=== PATIENT | male | born 1955 | race Caucasian/White ===

== ENCOUNTER 2023-08-16 01:39 | Emergency (ER) | payer MEDICARE ==
--- NOTE | 2023-08-16 01:47 | ERPHSYRPT ---
- History of Present Illness Time Seen by Provider: 08/16/23 01:47 Source: patient, family Exam Limitations: no limitations Physician History: This is a right-handed 67-year-old white male patient who was cutting a ham bone at noon today when he accidentally cut the dorsal aspect of his left thumb and the flap like fashion. Patient's tetanus status is not up-to-date. Patient put pressure on the site as it is a small laceration. However, it continues to bleed. Prior to his visit to our emergency department, he sat in the emergency room at [facility] in [facility] for over an hour. He did not think he be seen in a expedited fashion therefore he came to our facility for evaluation and management. Patient has not on any anticoagulation therapy but he does take a daily baby aspirin. He has no bleeding or clotting disorders. Timing/Duration: yesterday Quality: painful Severity: mild Location: hands (Left hand/thumb dorsal aspect) Possible Causes: no cause identified Associated Symptoms: denies symptoms Allergies/Adverse Reactions: No Known Drug Allergies Allergy (Verified 06/15/23 12:27) Home Medications: Atorvastatin Calcium [Lipitor 20MG Tablet] 1 tab PO HS 06/15/23 [History] Mecobalamin [B12 Active] 2 tab PO HS 08/16/23 [History] Hx Tetanus, Diphtheria Vaccination/Date Given: Yes Hx Influenza Vaccination/Date Given: No Hx Pneumococcal Vaccination/Date Given: No Travel Risk - International Travel Have you traveled outside of the country in past 3 weeks: No - Coronavirus Screening Are you exhibiting any of the following symptoms?: No Close contact with a COVID-19 positive Pt in past 14-21 Days: No - Vaccine Status Have you recieved a Covid-19 vaccination: Yes Vault Installer: Unknown - Vaccination Dates Dates if Unknown: ? - Review of Systems Constitutional: No Symptoms Eyes: No Symptoms Ears, Nose, & Throat: No Symptoms Respiratory: No Symptoms Cardiac: No Symptoms Abdominal/Gastrointestinal: No Symptoms Genitourinary Symptoms: No Symptoms Musculoskeletal: No Symptoms Skin: Other (Laceration dorsal aspect left thumb) Neurological: No Symptoms Psychological: No Symptoms Endocrine: No Symptoms Hematologic/Lymphatic: No Symptoms Immunological/Allergic: No Symptoms All Other Systems: Reviewed and Negative - Past Medical History Pertinent Past Medical History: Yes Cardiac History: High Cholesterol Musculoskeletal History: Fractures Other Medical History: LEFT SHOULDER TEAR, RIB FRACTURES, patient states that he was told at [facility] once that he has an irregular heart beat and that Dr. Soria currently has that information and EKG strip. - Past Surgical History Past Surgical History: No - Social History Smoking Status: Never smoker Exposure to second hand smoke: No Drug Use: none Patient Lives Alone: No - Nursing Vital Signs Nursing Vital Signs: Initial Vital Signs Pulse Rate 63 08/16/23 01:48 Respiratory Rate 18 08/16/23 01:48 Blood Pressure 132/78 08/16/23 01:48 O2 Sat by Pulse Oximetry 97 08/16/23 01:48 Pain Scale Pain Intensity 0 - Physical Exam General Appearance: no apparent distress, alert Eye Exam: PERRL/EOMI, eyes nml inspection Ears, Nose, Throat Exam: normal ENT inspection, moist mucous membranes Neck Exam: normal inspection, non-tender, supple, full range of motion Respiratory Exam: airway intact, No chest tenderness, No respiratory distress Gastrointestinal/Abdomen Exam: No tenderness Rectal Exam: not done Extremity Exam: normal range of motion, pelvis stable, lacerations (Just less than 1 cm superficial flap laceration dorsal aspect left thumb. Neurovascularly intact. Tendons intact. No active bleeding at this time. No evidence of foreign body.) Neurologic Exam: alert, oriented x 3, cooperative, cloth brushing and sueding supervisor II-XII nml as tested, normal mood/affect, nml cerebellar function, nml station & gait, sensation nml Skin Exam: laceration Lymphatic Exam: No adenopathy (See above) SpO2 Interpretation: normal O2 Delivery: Room Air Procedures - Laceration/Wound Repair Left Dorsal Finger Time of Procedure: 02:20 Wound Location: Left, hand (Thumb) Wound Length (cm): 1 Wound's Depth, Shape: superficial, linear, flap Wound Explored: clean (Wound explored to the base in a bloodless field and no foreign body noted) Irrigated: Yes Hibiclens Prep: Yes Wound Repaired With: Steri-strips, Dermabond (Benzoin used to prep the site) Layer Closure?: No - Course Nursing assessment & vital signs reviewed: Yes Ordered Tests: Medication Summary Discontinued Medications Generic Name Dose Route Start Last Admin Trade Name Freq PRN Reason Stop Dose Admin Diphtheria/Tetanus/Acell Pertussis 0.5 ml 08/16/23 02:04 08/16/23 02:31 Tdap --Diph,Pertuss(Acell),Tet Vac/Pf 0.5 Ml Vial IM 08/16/23 02:05 0.5 ml .ONCE ONE Administration Diphtheria/Tetanus/Acell Pertussis Confirm 08/16/23 02:30 Tdap --Diph,Pertuss(Acell),Tet Vac/Pf 0.5 Ml Vial Administered 08/16/23 02:31 Dose 0.5 ml IM .STK-MED ONE - Progress Progress: improved Progress Note: 08/16/23 02:39 This patient's medical issue is 1 of low complexity. The level of complexity in the workup performed based on review of the patient's past medical history, review the patient's medication list, review the patient's drug allergy list, history present illness and physical findings on examination. This patient's workup does not include laboratory or radiographic studies. Counseled pt/family regarding: diagnosis Medical Desision Making - Independent Historian Additional History obtained from: Spouse - Diagnostic Testing Diagnostic test were ordered, analyzed, and reviewed by me: No - Risk of complications Minimal Risk: Minimal risk of morbidity - Departure Departure Disposition: Home Clinical Impression: Thumb laceration Condition: Stable Critical Care Time: No Referrals: LOUIS SORIA MD [Primary Care Provider] - Follow up/PCP as directed Additional Instructions: Keep the current top bandage in place until the morning of 08/17/2023. At that time remove the top dressing and leave the Steri-Strips in place until they fall off on their own in 5 to 7 days. May begin allowing the soap and water to hit the site. Dry with a wheelchair van operator first responder blot dry. As the Steri-Strips curl up, may trim them as discussed.
[2023-08-16 01:58] VITALS: RESP 16; TEMP 97.5
[2023-08-16] MEDS ORDERED: Adacel Vial IM ONE ×2 (02:04→02:30)
[2023-08-16 02:43] VITALS: BP 136/69; PULSE 66; O2SAT 97
== END 2023-08-16 02:55 | disposition home or self-care (01) ==
LOC: ED 01:39
DX: S61.012A Laceration without foreign body of left thumb without damage to nail, initial encounter (principal); W26.0XXA Contact with knife, initial encounter; Y93.G9 Activity, other involving cooking and grilling; E78.5 Hyperlipidemia, unspecified; Z79.899 Other long term (current) drug therapy; Z23 Encounter for immunization
CPT/HCPCS: 12001; 90471; 90715; 99282

== ENCOUNTER 2024-06-27 22:57 | Emergency (ER) | payer MEDICARE ==
[2024-06-27 23:02] VITALS: TEMP 98.2
--- NOTE | 2024-06-27 23:03 | ERPHSYRPT ---
- History of Present Illness Time Seen by Provider: 06/27/24 23:02 Historian: patient Exam Limitations: no limitations Physician History: The patient, with a history of hypercholesterolemia managed with atorvastatin, presented with central chest pain that started in the morning. They reported a similar episode a few years ago, which resolved without a definitive diagnosis. The chest pain was initially radiating up to the neck, but currently localized to the chest. The discomfort seemed to intensify after a short walk. They denied any associated symptoms such as dyspnea, edema, nausea, vomiting, or palpitations. In the past, the patient had a stress test following a rib fracture, which returned normal results. They also had a history of significant acid reflux, diagnosed with a PH1 acid level on an upper GI study. This was managed with omeprazole, which they have not taken for several years as the symptoms resolved. The patient denied any current symptoms of acid reflux. They also denied any current respiratory symptoms or abdominal pain. They have never s moked. Timing/Duration: today Activities at Onset: rest Quality: pressure Location: substernal Chest Pain Radiation: no radiation Severity of Pain-Max: mild Severity of Pain-Current: mild Modifying Factors: Improves With: nothing. Worsens With: exertion, movement Associated Symptoms: cough, No nausea, No vomiting, No palpitations, No heartburn, No abdominal pain, No shortness of breath, No hurts to breathe, No diaphoresis, No chills, No fever, No fatigue, No weakness, No syncope, No headache, No dizziness, No edema, No back pain Prior Chest Pain/Cardiac Workup: stress test Nitro Today/Relief: 0.4 mg x 1, provided by ED Aspirin Treatment Today: 81 mg x 4, provided at home Allergies/Adverse Reactions: No Known Drug Allergies Allergy (Verified 06/27/24 23:23) Home Medications: Atorvastatin Calcium [Lipitor 20MG Tablet] 1 tab PO HS 06/15/23 [History] Mecobalamin [B12 Active] 2 tab PO DAILY 08/16/23 [History] Hx Tetanus, Diphtheria Vaccination/Date Given: Yes Hx Influenza Vaccination/Date Given: No Hx Pneumococcal Vaccination/Date Given: No - Review of Systems All Other Systems: Reviewed and Negative - Past Medical History Pertinent Past Medical History: Yes Neurological History: No Pertinent History ENT History: No Pertinent History Cardiac History: High Cholesterol Respiratory History: No Pertinent History Endocrine Medical History: No Pertinent History Musculoskeletal History: Fractures GI Medical History: No Pertinent History History: No Pertinent History Psycho-Social History: No Pertinent History Male Reproductive Disorders: No Pertinent History Other Medical History: LEFT SHOULDER TEAR, RIB FRACTURES, patient states that he was told at [facility] once that he has an irregular heart beat and that Dr. Soria currently has that information and EKG strip. - Past Surgical History Past Surgical History: No Neuro Surgical History: No Pertinent History Cardiac: No Pertinent History Respiratory: No Pertinent History Gastrointestinal: No Pertinent History Genitourinary: No Pertinent History Musculoskeletal: No Pertinent History Male Surgical History: No Pertinent History - Social History Smoking Status: Never smoker Exposure to second hand smoke: No Drug Use: none Patient Lives Alone: No - Nursing Vital Signs Nursing Vital Signs: Initial Vital Signs Pulse Rate 63 06/27/24 23:00 Respiratory Rate 16 06/27/24 23:00 Blood Pressure 162/80 06/27/24 23:00 O2 Sat by Pulse Oximetry 95 06/27/24 23:00 Pain Scale Pain Intensity 0 - Physical Exam General Appearance: no apparent distress, thin Eye Exam: PERRL/EOMI, eyes nml inspection Ears, Nose, Throat Exam: normal ENT inspection Neck Exam: normal inspection, non-tender, supple, full range of motion Respiratory Exam: normal breath sounds, lungs clear, airway intact, No chest tenderness, No respiratory distress Cardiovascular Exam: regular rate/rhythm, normal heart sounds, capillary refill <2 sec, No edema Gastrointestinal/Abdomen Exam: soft, No tenderness, No distention, No mass, No guarding, No rebound Extremity Exam: normal inspection, No swelling, No tenderness Neurologic Exam: alert, oriented x 3, cooperative Skin Exam: normal color, warm, dry SpO2 Interpretation: normal O2 Delivery: Room Air - Course Nursing assessment & vital signs reviewed: Yes EKG Interpreted by Me: RATE (51), Sinus Sudhakar, NORMAL ST-T, Other (ME 220) - Radiology Exams Chest X-ray Interpretation: Interpreted by me, Negative Ordered Tests: Active Orders 24 hr Category Date Time Status Property Insurance Claims Examiner STAT Care 06/27/24 23:03 Active EKG-ER Only STAT Care 06/27/24 23:03 Active IV Insertion STAT Care 06/27/24 23:03 Active CHEST 1 VIEW (PORTABLE) Stat Exams 06/27/24 23:03 Taken CBC W DIFF Stat Lab 06/27/24 23:20 Completed CMP Stat Lab 06/27/24 23:20 Completed LIPID PROFILE Stat Lab 06/27/24 23:30 Completed NT PRO BNPII Stat Lab 06/27/24 23:20 Completed TROPONIN Q4H Lab 06/27/24 23:20 Completed TROPONIN Q4H Lab 06/28/24 03:15 Ordered TROPONIN Q4H Lab 06/28/24 07:15 Ordered TSH [TSH, 3RD Generation] Stat Lab 06/27/24 23:20 Completed Medication Summary Discontinued Medications Generic Name Dose Route Start Last Admin Trade Name Kevq PRN Reason Stop Dose Admin Aspirin 324 mg 06/27/24 23:03 06/27/24 23:16 Aspirin 81 Mg Tab.Chew PO 06/27/24 23:04 Not Given STAT Aspirin Confirm 06/27/24 23:08 Aspirin 81 Mg Tab.Chew Administered 06/27/24 23:09 Dose 324 mg .ROUTE .STK-MED ONE Sodium Chloride 1,000 mls @ 999 mls/hr 06/27/24 23:03 06/27/24 23:10 Sodium Chloride 0.9% 1000 Ml IV 06/28/24 00:03 999 mls/hr .Q1H1M STA Administration Sodium Chloride Confirm 06/27/24 23:09 Sodium Chloride 0.9% 1000 Ml Administered 06/27/24 23:10 Dose 1,000 mls @ ud .ROUTE .STK-MED ONE Nitroglycerin 0.4 mg 06/27/24 23:03 06/27/24 23:10 Nitroglycerin 0.4 Mg (Ed) 0.4 Mg Tab.Subl SL 06/27/24 23:04 0.4 mg STAT ONE Administration Nitroglycerin Confirm 06/27/24 23:09 Nitroglycerin 0.4 Mg (Ed) 0.4 Mg Tab.Subl Administered 06/27/24 23:10 Dose 0.4 mg SL .STK-MED ONE Lab/Rad Data: Laboratory Result Diagrams 06/27/24 23:20 06/27/24 23:20 Laboratory Results 06/27/24 06/27/24 06/27/24 Range/Units 23:37 23:30 23:30 WBC (4.23-9.07) x10^3/uL RBC (4.63-6.08) x10^6/uL Hgb (13.7-17.5) g/dL Hct (40.1-51.0) % MCV (79.0-92.2) fL MCH (25.7-32.2) pg MCHC (32.3-36.5) g/dL RDW (11.6-14.4) % Plt Count (163-337) x10^3/uL MPV (9.4-12.4) fL Gran % (34.0-67.9) % Immature Gran % (Auto) (0.001-0.429) % Nucleat RBC Rel Count (0.00-0.2) % Eos # (Auto) (0.04-0.54) x10^3/uL Immature Gran # (Auto) (0.001-0.031) x10^3u/L Absolute Lymphs (auto) (1.32-3.57) x10^3/uL Absolute Monos (auto) (0.30-0.82) x10^3/uL Absolute Nucleated RBC (0.00-0.012) x10^3u/L Lymphocytes % (21.8-53.1) % Monocytes % (5.3-12.2) % Eosinophils % (0.8-7.0) % Basophils % (0.2-1.2) % Absolute Granulocytes (1.78-5.38) x10^3/uL Basophils # (0.01-0.08) x10^3/uL Sodium (135-145) mmol/L Potassium (3.5-5.1) mmol/L Chloride (98-107) mmol/L Carbon Dioxide (22-30) mmol/L Anion Gap (5-15) MEQ/L BUN (9-20) mg/dL Creatinine (0.66-1.25) mg/dL Estimated GFR ML/MIN Glucose (74-106) mg/dL Hemoglobin A1c 5.67 (4.5-6.0) % Calcium (8.4-10.2) mg/dL Total Bilirubin (0.2-1.3) mg/dL AST (17-59) U/L ALT (0-50) U/L Alkaline Phosphatase (38-126) U/L Troponin I (0.000-0.033) ng/mL NT-Pro-B Natriuret Pep (<300) pg/mL Serum Total Protein (6.3-8.2) g/dL Albumin (3.5-5.0) g/dL Triglycerides 85 (30-150) mg/dL Cholesterol 171 (50-200) mg/dL LDL Cholesterol 84 (30-100) mg/dL HDL Cholesterol 54 (40-60) mg/dL Heart Disease Risk Ratio 3.0 TSH 3rd Generation (0.470-4.680) mIU/L Influenza Type A Ag NEGATIVE (NEGATIVE) Influenza Type B Ag NEGATIVE (NEGATIVE) RSV (PCR) NEGATIVE (NEGATIVE) SARS-CoV-2 (PCR) NEGATIVE (NEGATIVE) 06/27/24 06/27/24 06/27/24 Range/Units 23:20 23:20 23:20 WBC (4.23-9.07) x10^3/uL RBC (4.63-6.08) x10^6/uL Hgb (13.7-17.5) g/dL Hct (40.1-51.0) % MCV (79.0-92.2) fL MCH (25.7-32.2) pg MCHC (32.3-36.5) g/dL RDW (11.6-14.4) % Plt Count (163-337) x10^3/uL MPV (9.4-12.4) fL Gran % (34.0-67.9) % Immature Gran % (Auto) (0.001-0.429) % Nucleat RBC Rel Count (0.00-0.2) % Eos # (Auto) (0.04-0.54) x10^3/uL Immature Gran # (Auto) (0.001-0.031) x10^3u/L Absolute Lymphs (auto) (1.32-3.57) x10^3/uL Absolute Monos (auto) (0.30-0.82) x10^3/uL Absolute Nucleated RBC (0.00-0.012) x10^3u/L Lymphocytes % (21.8-53.1) % Monocytes % (5.3-12.2) % Eosinophils % (0.8-7.0) % Basophils % (0.2-1.2) % Absolute Granulocytes (1.78-5.38) x10^3/uL Basophils # (0.01-0.08) x10^3/uL Sodium (135-145) mmol/L Potassium (3.5-5.1) mmol/L Chloride (98-107) mmol/L Carbon Dioxide (22-30) mmol/L Anion Gap (5-15) MEQ/L BUN (9-20) mg/dL Creatinine (0.66-1.25) mg/dL Estimated GFR ML/MIN Glucose (74-106) mg/dL Hemoglobin A1c (4.5-6.0) % Calcium (8.4-10.2) mg/dL Total Bilirubin (0.2-1.3) mg/dL AST (17-59) U/L ALT (0-50) U/L Alkaline Phosphatase (38-126) U/L Troponin I < 0.012 (0.000-0.033) ng/mL NT-Pro-B Natriuret Pep < 20.0 (<300) pg/mL Serum Total Protein (6.3-8.2) g/dL Albumin (3.5-5.0) g/dL Triglycerides (30-150) mg/dL Cholesterol (50-200) mg/dL LDL Cholesterol (30-100) mg/dL HDL Cholesterol (40-60) mg/dL Heart Disease Risk Ratio TSH 3rd Generation 1.815 (0.470-4.680) mIU/L Influenza Type A Ag (NEGATIVE) Influenza Type B Ag (NEGATIVE) RSV (PCR) (NEGATIVE) SARS-CoV-2 (PCR) (NEGATIVE) 06/27/24 06/27/24 Range/Units 23:20 23:20 WBC 5.9 (4.23-9.07) x10^3/uL RBC 4.06 L (4.63-6.08) x10^6/uL Hgb 13.0 L (13.7-17.5) g/dL Hct 38.2 L (40.1-51.0) % MCV 94.1 H (79.0-92.2) fL MCH 32.0 (25.7-32.2) pg MCHC 34.0 (32.3-36.5) g/dL RDW 12.0 (11.6-14.4) % Plt Count 216 (163-337) x10^3/uL MPV 9.1 L (9.4-12.4) fL Gran % 58.5 (34.0-67.9) % Immature Gran % (Auto) 0.3 (0.001-0.429) % Nucleat RBC Rel Count 0.0 (0.00-0.2) % Eos # (Auto) 0.05 (0.04-0.54) x10^3/uL Immature Gran # (Auto) 0.02 (0.001-0.031) x10^3u/L Absolute Lymphs (auto) 1.86 (1.32-3.57) x10^3/uL Absolute Monos (auto) 0.49 (0.30-0.82) x10^3/uL Absolute Nucleated RBC 0.00 (0.00-0.012) x10^3u/L Lymphocytes % 31.6 (21.8-53.1) % Monocytes % 8.3 (5.3-12.2) % Eosinophils % 0.8 (0.8-7.0) % Basophils % 0.5 (0.2-1.2) % Absolute Granulocytes 3.44 (1.78-5.38) x10^3/uL Basophils # 0.03 (0.01-0.08) x10^3/uL Sodium 141 (135-145) mmol/L Potassium 4.0 (3.5-5.1) mmol/L Chloride 104 (98-107) mmol/L Carbon Dioxide 28 (22-30) mmol/L Anion Gap 12.9 (5-15) MEQ/L BUN 18 (9-20) mg/dL Creatinine 0.96 (0.66-1.25) mg/dL Estimated GFR 85.0 ML/MIN Glucose 94 (74-106) mg/dL Hemoglobin A1c (4.5-6.0) % Calcium 9.5 (8.4-10.2) mg/dL Total Bilirubin 0.90 (0.2-1.3) mg/dL AST 26 (17-59) U/L ALT 16 (0-50) U/L Alkaline Phosphatase 50 (38-126) U/L Troponin I (0.000-0.033) ng/mL NT-Pro-B Natriuret Pep (<300) pg/mL Serum Total Protein 7.2 (6.3-8.2) g/dL Albumin 4.4 (3.5-5.0) g/dL Triglycerides (30-150) mg/dL Cholesterol (50-200) mg/dL LDL Cholesterol (30-100) mg/dL HDL Cholesterol (40-60) mg/dL Heart Disease Risk Ratio TSH 3rd Generation (0.470-4.680) mIU/L Influenza Type A Ag (NEGATIVE) Influenza Type B Ag (NEGATIVE) RSV (PCR) (NEGATIVE) SARS-CoV-2 (PCR) (NEGATIVE) - Progress Progress: improved Air Movement: good Progress Note: 06/27/24 23:40 Chest Pain Central chest pain radiating to the neck, exacerbated by physical activity. No associated dyspnea, nausea, or vomiting. EKG normal. History of high cholesterol managed with atorvastatin. No recent cardiac stress test. -Order labs for cardiac markers. -Recommend follow-up with primary care physician, Dr. Soria, for potential cardiac stress test. 06/28/24 00:41 Troponin neg, EKG NSR, CBC, CMP, TSH, A1c, Lipid panel unremarkable. Advised patient to follow up with Dr. Soria for stress testing. Will send Nitro to pharmacy. No use if patient has taken Viagra. Blood Culture(s) Obtained: No Antibiotics given: No Counseled pt/family regarding: lab results, diagnosis, need for follow-up, rad results Medical Desision Making - Diagnostic Testing Diagnostic test were ordered, analyzed, and reviewed by me: Yes Radiological Interpretation: Interpreted by me, Reviewed by me, Teleradiologist Report - Risk of complications The pt has a mod risk of morbidity or mortality based on: Need for prescription drug management - Departure Departure Disposition: Home Clinical Impression: Chest pain Condition: Good Critical Care Time: No Referrals: LOUIS SORIA MD [Primary Care Provider] - Follow up with PCP 2 days Instructions: Chest Pain (DC) Additional Instructions: Don't take nitroglycerin if taking Viagra, this will cause an unsafe drop in your blood pressure. Prescriptions: Nitroglycerin 0.4 mg SL Q5MIN PRN MR X 3 PRN 30 Days #30 tablet PRN Reason: Chest Pain
[2024-06-27] MEDS ORDERED: BABY ASPIRIN 81 MG CHEW ONE (23:08)
[2024-06-27] MEDS ORDERED: Sodium Chloride 0.9% 1000 ML 1,000 ML ONE (23:09)
[2024-06-27] MEDS ORDERED: Nitrostat 0.4 MG (ED) SL ONE (23:09)
[2024-06-27] MEDS: BABY ASPIRIN 81 MG CHEW PO ONE (23:10)
[2024-06-27] MEDS: Sodium Chloride 0.9% 1000 ML 1,000 ML IV STA (23:10)
[2024-06-27] MEDS: Nitrostat 0.4 MG (ED) SL ONE (23:10)
[2024-06-27 23:23] LABS: Absolute Neutrophil Ct (ANC) 3.44 x10^3/uL (1.78-5.38); BASOPHIL % 0.5 % (0.2-1.2); Basophil (Absolute #) 0.03 x10^3/uL (0.01-0.08); Eosinophil % 0.8 % (0.8-7.0); Eosinophil (Absolute #) 0.05 x10^3/uL (0.04-0.54); Hematocrit 38.2 % (40.1-51.0); IMMATURE GRAN # 0.02 x10^3u/L (0.001-0.031); IMMATURE GRAN % 0.3 % (0.001-0.429); Lymphocyte (Absolute #) 1.86 x10^3/uL (1.32-3.57); Lymphocytes % 31.6 % (21.8-53.1); Mean Cell Volume 94.1 fL (79.0-92.2); Mean Platelet Volume 9.1 fL (9.4-12.4); Monocyte (Absolute #) 0.49 x10^3/uL (0.30-0.82); Monocytes % 8.3 % (5.3-12.2); Neutrophil % 58.5 % (34.0-67.9); Platelet Count 216 x10^3/uL (163-337); Red Blood Count 4.06 x10^6/uL (4.63-6.08); White Blood Count 5.9 x10^3/uL (4.23-9.07)
[2024-06-27 23:36] LABS: ALBUMIN 4.4 g/dL (3.5-5.0); ANION GAP 12.9 MEQ/L (5-15); BILIRUBIN,TOTAL 0.9 mg/dL (0.2-1.3); Calcium 9.5 mg/dL (8.4-10.2); Creatinine 1 0.96 mg/dL (0.66-1.25); Total Protein 7.2 g/dL (6.3-8.2)
[2024-06-28 00:03] VITALS: O2SAT 99
[2024-06-28 00:15] LABS: INFLUENZA A NEGATIVE (NEGATIVE); INFLUENZA B NEGATIVE (NEGATIVE); RESPIRATORY SYNCTIAL VIRUS NEGATIVE (NEGATIVE); SARS-CoV-2 Xpert Express NEGATIVE (NEGATIVE)
[2024-06-28 00:46] VITALS: BP 122/72; PULSE 55; RESP 17
--- NOTE | 2024-06-28 07:13 | XRAY ---
Indication: Chest pain. Comparison: June 15, 2023 Portable apical lordotic chest remains hyperinflated and clear again with a few incidental calcified granulomas. Heart not enlarged. Bony thorax intact. No new/acute findings.
== END 2024-06-28 00:52 | disposition home or self-care (01) ==
LOC: ED 22:57
DX: R07.9 Chest pain, unspecified (principal); E78.5 Hyperlipidemia, unspecified; Z79.899 Other long term (current) drug therapy
CPT/HCPCS: 0241U; 36000; 36415; 71045; 80053; 80061; 83036; 83721; 83880; 84443; 84484; 85025; 93005; 93041; 99284; A9270-GY